=== PATIENT | female | born 1965 | race African-American/Black ===

== ENCOUNTER → 2020-03-26 | Outpatient (CLI) | payer BC, OTHER ==
[~2020-03-26] MED LIST: CHILDREN'S ASPI81 MG PO; MAXZIDE-25 MG1 EACH PO; NAPROSYN500 MG PO; PAXIL10 MG
== END ==
LOC: CAT 14:18
PROVIDERS: ATTEND Family Medicine
DX: K76.0 Fatty (change of) liver, not elsewhere classified (principal); R10.9 Unspecified abdominal pain; K57.30 Diverticulosis of large intestine without perforation or abscess without bleeding